=== PATIENT | male | born 1990 | race Caucasian/White ===

== ENCOUNTER 2019-06-27 16:28 | Emergency (ER) | payer BC ==
[2019-06-27] MEDS ORDERED: Famotidine IV* 10 MG/ML 2 ML (20 mg) IV SLOW PU ONE (16:38)
--- NOTE | 2019-06-27 16:46 | ED ---
Allergic Reaction/Systemic - HPI Summary HPI Summary: Pt is a 28 y/o M presenting to the ED with a chief complaint of an allergic reaction. He states he was stung by a bee, and in the past, Benadryl has usually taken care of his sx, but it did not help much today. He took two Benadryl, went to where they gave him 10mg of a steroid. He current reports edema and hives. He denies SOB. He states sent him here because his BP was decreasing. - History of Current Complaint Chief Complaint: EDAllergicReaction Time Seen by Provider: 06/27/19 16:35 Hx Obtained From: Patient Onset/Duration: Sudden Onset, Still Present Timing: Constant, Lasting Hours Severity Initially: Moderate Severity Currently: None Pain Intensity: 0 Pain Scale Used: 0-10 Numeric Location: Diffuse Character: Swelling, Hives Aggravating Factor(s): Other - bee sting Alleviating Factor(s): Antihistamines Associated Signs And Symptoms: Positive: Rash - Allergies/Home Medications Allergies/Adverse Reactions: Allergies Allergy/AdvReac Type Severity Reaction Status Date / Time bee venom protein (honey bee) Allergy Anaphylatic Verified 06/27/19 16:33 Shock mustard Allergy Anaphylatic Verified 06/27/19 16:33 Shock Sulfa (Sulfonamide Allergy Rash Verified 06/27/19 16:33 Antibiotics) PMH/Surg Hx/FS Hx/Imm Hx Previously Healthy: Yes Endocrine/Hematology History: Denies: Hx Diabetes Cardiovascular History: Denies: Hx Hypertension Infectious Disease History: No Infectious Disease History: Denies: Traveled Outside the [place] in Last 30 Days - Family History Known Family History: Negative: Respiratory Disease - Social History Occupation: Employed Full-time Hx Substance Use: No Substance Use Type: Reports: None Review of Systems Negative: Shortness Of Breath Positive: Edema Positive: Rash All Other Systems Reviewed And Are Negative: Yes Physical Exam - Summary Physical Exam Summary: Appearance: The patient is well-nourished in no acute distress and in no acute pain. Skin: The skin is warm and dry and skin color reflects adequate perfusion. There is mild diffuse urticaria. HEENT: The head is normocephalic and atraumatic. The pupils are equal and reactive. The conjunctivae are clear and without drainage. Nares are patent and without drainage. Mouth reveals moist mucous membranes and the throat is without erythema and exudate. The external ears are intact. The ear canals are patent and without drainage. The tympanic membranes are intact. Neck: The neck is supple with full range of motion and non-tender. There are no carotid bruits. There is no neck vein distension. Respiratory: Chest is non-tender. Lungs are clear to auscultation and breath sounds are symmetrical and equal. Cardiovascular: Heart is regular rate and rhythm. There is no murmur or rub auscultated. There is no peripheral edema and pulses are symmetrical and equal. Abdomen: The abdomen is soft and non-tender. There are normal bowel sounds heard in all four quadrants and there is no organomegaly palpated. Musculoskeletal: There is no back tenderness noted. Extremities are non-tender with full range of motion. There is good capillary refill. There is no peripheral edema or calf tenderness elicited. Neurological: Patient is alert and oriented to person, place and time. The patient has symmetrical motor strength in all four extremities. Cranial nerves are grossly intact. Deep tendon reflexes are symmetrical and equal in all four extremities. Psychiatric: The patient has an appropriate affect and does not exhibit any anxiety or depression. Triage Information Reviewed: Yes Vital Signs On Initial Exam: Initial Vitals Temp Pulse Resp BP Pulse Ox 99.7 F 88 16 103/56 97 06/27/19 16:30 06/27/19 16:30 06/27/19 16:30 06/27/19 16:30 06/27/19 16:30 Vital Signs Reviewed: Yes Diagnostics - Vital Signs Vital Signs Temp Pulse Resp BP Pulse Ox 06/27/19 16:30 99.7 F 88 16 103/56 97 - Laboratory Lab Statement: Any lab studies that have been ordered have been reviewed, and results considered in the medical decision making process. Allergic Reaction Course/Dx - Course Course Of Treatment: Mr. Holloway presented at an hour and a half or so after getting stung by a bee. He has been stung in the past and at one point carried an EpiPen with him. He hasn't needed it in quite a number of years although he has been stung. He has been using Benadryl. He did take 50 mg of Benadryl by mouth today about 3:00 and [facility] him a shot of Decadron 10 mg and sent him over here. We gave him an additional 40 of Pepcid through the IV that EMS established. We observed him for a couple of hours and he improved. At no point did he have any trouble swallowing or breathing. I recommended symptomatic treatment and sent a prescription for EpiPen's for him. - Diagnoses Provider Diagnoses: Allergic reaction Discharge - Sign-Out/Discharge Documenting (check all that apply): Patient Departure Patient Received Moderate/Deep Sedation with Procedure: No - Discharge Plan Condition: Stable Disposition: HOME Prescriptions: EPINEPHrine [Epipen 2-Oziel] 0.3 mg IM ONCE PRN #1 inj PRN Reason: Allergy Symptoms Patient Education Materials: General Allergic Reaction (ED) Referrals: Sena Vaca NP [Primary Care Provider] - Additional Instructions: Please follow up with your primary care provider. Return to the ED with any new or worsening symptoms. - Billing Disposition and Condition Condition: STABLE Disposition: Home - Attestation Statements Document Initiated by Scribe: Yes Documenting Scribe: Aalina Navarrete Provider For Whom Yasmine is Documenting (Include Credential): Salty Razo MD. Scribe Attestation: Alaina Anthony, scribed for Salty Razo MD. on 06/27/19 at 1848. Scribe Documentation Reviewed: Yes Provider Attestation: The documentation as recorded by the Alaina andres accurately reflects the service I personally performed and the decisions made by me, Salty Razo MD. Status of Scribe Document: Viewed
[2019-06-27 18:32] VITALS: BP 127/92
== END 2019-06-27 18:30 | disposition home or self-care (01) ==
LOC: ED 16:28
DX: T78.40XA Allergy, unspecified, initial encounter (principal); X58.XXXA Exposure to other specified factors, initial encounter; Y92.9 Unspecified place or not applicable; Z88.2 Allergy status to sulfonamides
CPT/HCPCS: 96365; 99282